=== PATIENT | female | born 1955 ===

== ENCOUNTER 2023-08-28 06:00 | Outpatient (RCR) | payer BC, MEDICAID, SELFPAY | END 2023-09-20 23:59 | disposition home or self-care (01) | LOC: GOT 06:00 | PROVIDERS: Visit Provider Nurse Practitioner | DX: I89.0 Lymphedema, not elsewhere classified (principal); Z92.3 Personal history of irradiation | CPT/HCPCS: 97110; 97140; 97166 ==

== ENCOUNTER 2023-09-07 06:00 | Outpatient (RCR) | payer BC, MEDICAID, SELFPAY | END 2023-09-20 23:59 | disposition home or self-care (01) | LOC: GST 06:00 | PROVIDERS: Visit Provider Nurse Practitioner | DX: Z85.819 Personal history of malignant neoplasm of unspecified site of lip, oral cavity, and pharynx (principal); Z92.3 Personal history of irradiation; R25.2 Cramp and spasm | CPT/HCPCS: 92610 ==

== ENCOUNTER 2023-09-21 06:00 | Outpatient (RCR) | payer BC, MEDICAID, SELFPAY | END 2023-10-21 23:59 | disposition home or self-care (01) | LOC: GOT 06:00 | PROVIDERS: Visit Provider Nurse Practitioner | DX: I89.0 Lymphedema, not elsewhere classified (principal) | CPT/HCPCS: 97140 ==

== ENCOUNTER 2023-09-21 06:00 | Outpatient (RCR) | payer BC, MEDICAID, SELFPAY | END 2023-10-21 23:59 | disposition home or self-care (01) | LOC: GST 06:00 | PROVIDERS: Visit Provider Nurse Practitioner | DX: Z85.819 Personal history of malignant neoplasm of unspecified site of lip, oral cavity, and pharynx (principal); Z92.3 Personal history of irradiation; R25.2 Cramp and spasm | CPT/HCPCS: 92526 ==

== ENCOUNTER 2023-10-22 06:00 | Outpatient (RCR) | payer BC, MEDICAID, SELFPAY | END 2023-11-20 23:59 | disposition home or self-care (01) | LOC: GOT 06:00 | PROVIDERS: Visit Provider Nurse Practitioner | DX: I89.0 Lymphedema, not elsewhere classified (principal) | CPT/HCPCS: 97140 ==

== ENCOUNTER 2024-07-22 06:00 | Outpatient (RCR) | payer BC, MEDICAID, SELFPAY | END 2024-08-21 23:59 | disposition home or self-care (01) | LOC: GPT 06:00 | PROVIDERS: Visit Provider Student in an Organized Health Care Education/Training Program | DX: M17.11 Unilateral primary osteoarthritis, right knee (principal) | CPT/HCPCS: 97110; 97140; 97161; 97530 ==

== ENCOUNTER 2024-08-22 06:00 | Outpatient (RCR) | payer BC, MEDICAID, SELFPAY | END 2024-09-20 23:59 | disposition home or self-care (01) | LOC: GPT 06:00 | PROVIDERS: Visit Provider Student in an Organized Health Care Education/Training Program | DX: M17.11 Unilateral primary osteoarthritis, right knee (principal) | CPT/HCPCS: 97110; 97140 ==

== ENCOUNTER 2025-02-16 09:09 | Emergency (ER) | payer MEDICARE, MEDICAID, SELFPAY ==
[2025-02-16 09:10] VITALS: BP 126/69; PULSE 75; RESP 16; TEMP 36.6; O2SAT 96; BMI 24.5
--- NOTE | 2025-02-16 09:10 | ECG_ITS ---
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
--- NOTE | 2025-02-16 09:11 | XRR_ITS ---
PROCEDURE INFORMATION: Exam: XR Chest Exam date and time: 02/16/2025 9:14 AM Age: 69 years old Clinical indication: Pain; Angina pectoris; Prior surgery; Surgery date: 6+ months; Surgery type: Pacer; Additional info: Chest pain TECHNIQUE: Imaging protocol: Radiologic exam of the chest. Views: 1 view. COMPARISON: No relevant prior studies available. FINDINGS: Tubes, catheters and devices: Left chest pacemaker defibrillator device is demonstrated. Surgical clips overlie the bilaterally abdomen. Lungs: The lungs appear clear. Pleural spaces: No pleural effusion. No pneumothorax. Heart/Mediastinum: Mediastinum and sam appear unremarkable. Vasculature: Mild atherosclerotic calcification demonstrated within the aorta. Bones/joints: Generalized bony degenerative changes. XR/XR chest 1V portable [id number] IMPRESSION: 1. No evidence for an acute cardiopulmonary process. 2. Degenerative and postsurgical changes are demonstrated, as described above.
--- NOTE | 2025-02-16 09:19 | ED_ITS ---
HPI - Chest Pain 2 General: Chief Complaint: Chest Pain Stated Complaint: chest pain Time Seen by Provider: 02/16/25 09:11 Source: patient Mode of arrival: EMS Limitations: no limitations History of Present Illness: Patient is a very nice 69-year-old female who presents to the ED today just to get checked out . She states earlier today she began noticing a coldness sensation to her shoulder blades and chest. This sensation was brief. She states she has a history of pacemaker/cardiac defibrillator due to hereditary prolonged QT syndrome and runs of ventricular tachycardia. She follows up with cardiology at [facility]. Pacemaker was just placed approximately a year or so ago. At time of arrival to the emergency department and during my initial examination, she is not complaining of any chest discomfort. Denies shortness of breath or difficulty breathing. She is not complaining of any leg swelling or weight gain. MD complaint: other (abnormal sensation in chest) Onset (ago): hour(s) Timing of current episode: now resolved Prior episodes: No Onset: during rest Pain location: substernal, left chest and other (back) Severity: mild Relieving factors: nothing Exacerbating factors: nothing Associated symptoms: Deny abdominal pain, fever(s), nausea, palpitations, syncope or vomiting Treatment prior to arrival: none Risk Factors: Thoracic aortic dissection risk factors: none Related Data Home Medications ?Medication ?Instructions ?Recorded ?Confirmed bumetanide 1 mg tablet 1 - 2 mg PO DAILY 02/16/25 0 02/16/25 clopidogrel 75 mg tablet 75 mg PO DAILY 02/16/2501/21 fluconazole 100 mg tablet 100 mg PO DAILY 02/16/25 gabapentin 300 mg capsule 300 mg PO TID 02/16/2502/16 levothyroxine 137 mcg tablet 137 mcg PO DAILY 02/16/25 02/16/25 (Synthroid) metoprolol succinate 25 mg 25 mg PO DAILY 02/16/25 tablet,extended release 24 hr olmesartan 5 mg tablet 10 mg PO DAILY 02/16/2501/21 Review of Systems 2 Const: Denies: fever(s), chills, body aches, fatigue or malaise Card: Reports: chest pain and dyspnea on exertion; Denies: palpitations, irregular heart rhythm, edema, swelling of feet/ankles, lightheadedness, syncope, pre-syncope, orthopnea, leg pain with exertion or acrocyanosis Resp: Denies: productive cough, non-productive cough, stridor, pain on inspiration or chest congestion GI: Denies: abdominal pain, nausea, vomiting or diarrhea Musc: Denies: neck pain, back pain, extremity pain, extremity swelling or joint swelling Skin/Breast: Denies: rash Neuro: Denies: headache(s), numbness in extremities, weakness in extremities, sensory changes or difficulty walking Physical Exam 2 Const: COMMON NORMALS: no acute distress, average body habitus, patient oriented x3, no limitations, healthy appearing, alert and well nourished G ENERAL APPEARANCE: cooperative ORIENTATION/CONSCIOUSNESS: Yes awake, Yes oriented to person, Yes oriented to place and Yes oriented to time HENMT: COMMON NORMALS: normocephalic and atraumatic HEAD & SCALP: n ormocephalic and atraumatic Neck/C-Spine: COMMON NORMALS: full ROM, no lymphadenopathy, supple and no meningeal signs Chest: COMMONS NORMALS: normal inspection of the chest Resp: COMMON NORMALS: normal respiratory effort and clear to auscultation bilaterally AUSCULTATION: clear to auscultation bilaterally Cardio: COMMON NORMALS: regular rate and regular rhythm RATE: regular rate RHYTHM: regular rhythm GI: COMMON NORMALS: Normal to inspection, nondistended, normoactive bowel sounds present, Soft to palpation, non-tender, No hepatosplenomegaly present and no masses PALPATION: Yes Soft to palpation and Yes No hepatosplenomegaly present : COMMON NORMALS: Yes no CVA tenderness BLADDER/KIDNEY EXAM: Yes no CVA tenderness Back/Pelvis: COMMON NORMALS: no CVA tenderness and thoracic and lumbar spine normal to inspection Extremity: COMMON NORMALS: normal to inspection, no clubbing, cyanosis or edema, no calf tenderness and no pedal edema GENERAL: Yes normal exam except as noted Neuro: COMMON NORMALS: patient oriented x3, moves all extremities, no focal motor deficits and no sensory deficits noted SENSORIUM/ORIENTATION: Yes alert, Yes oriented to person, Yes oriented to place and Yes oriented to time MENINGEAL SIGNS: Yes no meningeal signs Skin: COMMON NORMALS: no rashes or lesions noted GENERAL SKIN EXAM: no rashes or lesions noted Course 2 Vital Signs: Vital signs: Vital Signs Temperature 97.9 F 04/28/25 09:10 Pulse Rate 53 L 02/16/25 11:03 Respiratory Rate 16 02/16/25 09:10 Blood Pressure 107/64 02/16/25 11:03 Pulse Oximetry 100 02/16/25 11:03 Oxygen Delivery Me thod Room Air 02/16/25 11:03 MDM - Chest Pain Medical Decision Making Patient is a 69-year-old female here wanting to get checked out after she had a coldness sensation to her chest earlier today. History of congenital prolonged QT and episodes of ventricular tachycardia and currently has a pacemaker/defibrillator because of these. She follows up with cardiology at [facility]. Patient has been completely asymptomatic throughout her 3.5-hour ED stay. Her blood work shows some mild anemia. Chemistry showing mild hypokalemia at 3.2. She did have hypomagnesemia at 1.4. These were both replaced here in the emergency department. Mild elevations to her BUN/Cr at 27/1.6. She does tell me she has previous problems with her kidney and does follow-up with nephrology. She has a patient portal and her last creatinine was 1.2 in September 2024. Baseline troponin slightly elevated at 18 but she has a negative delta. CXR is unremarkable. EKGs are nonischemic. Intermittent pacing. Pacemaker was interrogated and seems to be functioning appropriately. Recommend she follow-up with PCP and/or cardiology. Return ED precautions discussed. Discussed EKGs with Dr. Phillips. Medical Records I reviewed the patient's medical records. Lab Data I reviewed the patient's lab results. 02/16/25 09:23 02/16/25 09:23 Radiology Impressions Chest X-Ray 02/16/25 09:11 IMPRESSION: 1. No evidence for an acute cardiopulmonary process. 2. Degenerative and postsurgical changes are demonstrated, as described above. Laboratory Results WBC 5.84 10^3/uL (3.29-11.43) 02/16/25 09:23 RBC 4.28 10^6/uL (3.85-5.65) 02/16/25 09:23 Hgb 11.20 g/dL (11.27-16.99) L 02/16/25 09:23 Hct 35.7 % (36-47) L 02/16/25 09:23 MCV 83.4 fl (85-98) L 02/16/25 09:23 MCH 26.2 pg (27-33) L 02/16/25 09:23 MCHC 31.4 g/dL (30-55) 02/16/25 09:23 RDW 14.6 % (12.1-15.1) 02/16/25 09:23 Plt Count 280 10^3/cmm (157-399) 02/16/25 09:23 MPV 8.8 fL (7.4-10.4) 02/16/25 09:23 Neut % (Auto) 61.0 % 02/16/25 09:23 Lymph % (Auto) 27.4 % 02/16/25 09:23 [place] % (Auto) 9.4 % 02/16/25 09:23 Eos % (Auto) 1.4 % 02/16/25 09:23 Baso % (Auto) 0.5 % 02/16/25 09:23 Neut # (Auto) 3.56 10^3/uL (1.8-7.7) 02/16/25 09:23 Lymph # (Auto) 1.6 10^3/uL (0.8-4.8) 02/16/25 09:23 [place] # (Auto) 0.6 10^3/uL (0.2-0.9) 02/16/25 09:23 Eos # (Auto) 0.1 10^3/uL (0.0-0.8) 02/16/25 09:23 Baso # (Auto) 0.0 10^3/uL (0.0-0.1) 02/16/25 09:23 Nucleated RBC % (auto) 0 % 02/16/25 09:23 Nucleated RBCs # 0.0 /100WBC 02/16/25 09:23 Sodium 136 mmol/L (136-145) 02/16/25 09:23 Potassium 3.2 mmol/L (3.5-5.1) L 02/16/25 09:23 Chloride 97 mmol/L (98-107) L 02/16/25 09:23 Carbon Dioxide 24 mmol/L (22-29) 02/16/25 09:23 Anion Gap 18.2 (5-19) 02/16/25 09:23 BUN 27 mg/dL (8-23) H 02/16/25 09:23 Creatinine 1.6 mg/dL (0.5-0.9) H 02/16/25 09:23 GFR Calculation 32.0 mL/min (90-130) L 02/16/25 09:23 Glucose 90 mg/dL (65-115) 02/16/25 09:23 Calculated Osmolality 287 mOsm/kg (285-295) 02/16/25 09:23 Calcium 9.0 mg/dL (8.5-10.5) 02/16/25 09:23 Magnesium 1.4 mg/dL (1.7-2.3) L 02/16/25 09:23 Total Bilirubin 0.2 mg/dL (0.15-1.2) 02/16/25 09:23 AST 15 U/L (0-32) 02/16/25 09:23 ALT 9 U/L (0-33) 02/16/25 09:23 Alkaline Phosphatase 112 U/L (35-105) H 02/16/25 09:23 Troponin T Baseline 18 ng/L (0-10) H 02/16/25 09:23 Troponin T 120 Minute 15.78 ng/L (0-10) H 02/16/25 11:48 Delta Troponin T -2.22 ABS# (0-10) L 02/16/25 11:48 NT-Pro-B Natriuret Pep 103 pg/mL (0-125) 02/16/25 09:23 Total Protein 6.8 g/dL (6.6-8.7) 02/16/25 09:23 Albumin 4.4 g/dL (3.5-5.2) 02/16/25 09:23 Globulin 2.4 g/dL (1.3-4.6) 02/16/25 09:23 All radiology interpretation(s) finalized by discharge Discharge Plan Discharge Patient Disposition: Home Clinical Impression: Atypical chest pain Condition: Stable Prescriptions: No Action fluconazole 100 mg tablet 100 mg PO DAILY levothyroxine [Synthroid] 137 mcg tablet 137 mcg PO DAILY clopidogrel 75 mg tablet 75 mg PO DAILY gabapentin 300 mg capsule 300 mg PO TID bumetanide 1 mg tablet 1 - 2 mg PO DAILY metoprolol succinate 25 mg tablet extended release 24 hr 25 mg PO DAILY olmesartan 5 mg tablet 10 mg PO DAILY Discharge Orders: Discharge ED (Routine); Ordered 02/16/25 Ordered By: Cheryl Saucedo Activity Restrictions/Additional Instructions: As we discussed, I would like 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 We discussed abnormal results here including some mildly low potassium and magnesium. These were supplemented here in the emergency department. Discussed repeating kidney functions as your creatinine was slightly elevated at 1.6. You did mention that you see a director of pediatric rehabilitation. You may return to the emergency department for onset of severe chest pain, shortness of breath, difficulty breathing, palpitations, lightheadedness/dizziness, or any other concerns you may have. Print Language: Tongan Coding Level of Care Code ED Ocular Care Technologist for Cherie Rodriguez
[2025-02-16 09:27] LABS: Basophils % 0.5 %; Eosinophils # 0.1 10^3/uL (0.0-0.8); Eosinophils % 1.4 %; Hematocrit 35.7 % (36-47); Lymphocytes # 1.6 10^3/uL (0.8-4.8); Lymphocytes % 27.4 %; Mean Corpuscular HGB Conc 31.4 g/dL (30-55); Mean Corpuscular Hemoglobin 26.2 pg (27-33); Mean Corpuscular Volume 83.4 fl (85-98); Mean Platelet Volume 8.8 fL (7.4-10.4); Monocytes # 0.6 10^3/uL (0.2-0.9); Monocytes % 9.4 %; Neutrophils # 3.56 10^3/uL (1.8-7.7); Nucleated Red Blood Cells % 0 %; Platelet Count 280 10^3/cmm (157-399); Red Blood Count 4.28 10^6/uL (3.85-5.65); Red Cell Distribution Width 14.6 % (12.1-15.1); White Blood Count 5.84 10^3/uL (3.29-11.43)
[2025-02-16 09:45] LABS: Troponin(5th) Baseline 18 ng/L (0-10)
[2025-02-16 09:57] LABS: Alanine Aminotransferase 9 U/L (0-33); Albumin Level 4.4 g/dL (3.5-5.2); Alkaline Phosphatase 112 U/L (35-105); Anion Gap 18.2 (5-19); Aspartate Amino Transferase 15 U/L (0-32); Blood Urea Nitrogen 27 mg/dL (8-23); Carbon Dioxide 24 mmol/L (22-29); Chloride 97 mmol/L (98-107); Creatinine Clr Calc Pharmacy 33.0869; Globulin 2.4 g/dL (1.3-4.6); Glucose 90 mg/dL (65-115); NT Pro B Type Natriuretic Pept 103 pg/mL (0-125); Osmolality Calculated 287 mOsm/kg (285-295); Potassium 3.2 mmol/L (3.5-5.1); Sodium 136 mmol/L (136-145); Total Bilirubin 0.2 mg/dL (0.15-1.2); Total Protein 6.8 g/dL (6.6-8.7)
[2025-02-16 10:33] LABS: Magnesium 1.4 mg/dL (1.7-2.3)
[2025-02-16] MEDS: sodium chloride 0.9% 1,000 ML 999 ML IV (10:59)
[2025-02-16] MEDS: magnesium sulfate premix 1 GM/100 ML PIGGYBACK IV (11:01)
[2025-02-16] MEDS: potassium chloride oral liq 20 mEq/15 mL UDC 40 MEQ PO (11:01)
[2025-02-16 11:03] VITALS: BP 107/64; PULSE 53; O2SAT 100
--- NOTE | 2025-02-16 11:17 | ECG_ITS ---
[facility]: [facility]25[facility]16 Pat Name: Deisy Salazar Department: Room: Gender: Female [employer] Eng[employer]ver: : 1955 Requested By: Cheryl Saucedo Order Number: [id number] Reading MD: MARKO MORATAYA Measurements Intervals [place] Rate: 52 P: 36 ME: 184 QRS: 17 QRSD: 89 T: 27 QT: 521 QTc: 486 Interpretive Statements SINUS BRADYCARDIA LOW QRS VOLTAGE IN PRECORDIAL LEADS [QRS DEFLECTION < 1.0 mV IN CHEST LEADS] PROLONGED QT INTERVAL CRITICAL TEST RESULT Compared to ECG 02/16/2025 09:10:04 Low QRS voltage now present Prolonged QT interval now present Atrial-paced complex(es) or rhythm no longer present Electronically Signed On 02-16-2025 21:00:43 CDT by MARKO MORATAYA [email or web address]
[2025-02-16 12:14] LABS: Troponin 5 2HR 15.78 ng/L (0-10)
[2025-02-16 12:16] LABS: Troponin 5 2HR Delta -2.22 ABS# (0-10)
[2025-02-16 12:54] VITALS: BP 102/58; PULSE 57; O2SAT 99
== END 2025-02-16 12:55 | disposition home or self-care (01) ==
PROVIDERS: Emergency Provider Physician Assistant
DX: R07.89 Other chest pain (principal); Z79.02 Long term (current) use of antithrombotics/antiplatelets
CPT/HCPCS: 36415; 71045; 80053; 83735; 83880; 84484; 85025; 93005; 96365; 96366; 99285; J3475; J7030; J9999